=== PATIENT | male | born 1985 | race African-American/Black ===

== ENCOUNTER 2021-11-11 13:48 | Emergency (ER) | payer OTHER ==
[~2021-11-11] VITALS: Ht 188 cm; Wt 93.9 kg
[2021-11-11 14:04] VITALS: BP 134/64
[2021-11-11] MEDS ORDERED: NAPR-1164 PO (15:30)
--- NOTE | 2021-11-11 15:41 | NUR ---
RAPID COVID TEST DONE SENT TO LAB.
== END 2021-11-11 15:49 | disposition home or self-care (01) ==
LOC: ER 14:07
DX: R51.9 Headache, unspecified (principal); S16.1XXA Strain of muscle, fascia and tendon at neck level, initial encounter; V49.9XXA Car occupant (driver) (passenger) injured in unspecified traffic accident, initial encounter; Y92.410 Unspecified street and highway as the place of occurrence of the external cause; Z20.822 Contact with and (suspected) exposure to COVID-19
CPT/HCPCS: 70450; 87426; 99284; C9803

== ENCOUNTER 2022-09-03 14:13 | Emergency (ER) | payer OTHER ==
[~2022-09-03] VITALS: Ht 188 cm; Wt 93.4 kg
[~2022-09-03 14:13] MED LIST: NAPR-1164 PO
[2022-09-03 14:19] VITALS: BP 147/79
== END 2022-09-03 14:42 | disposition home or self-care (01) ==
LOC: ER 14:15
DX: M67.432 Ganglion, left wrist (principal); Z88.0 Allergy status to penicillin; Z79.1 Long term (current) use of non-steroidal anti-inflammatories (NSAID)